=== PATIENT | female | born 1995 | race African-American/Black ===

== ENCOUNTER → 2019-04-21 | Outpatient (CLI) | payer BC ==
[~2019-04-21] MED LIST: BACTRIM DS TAB1 EACH PO; IBUPROFEN 600600 M1 PO; NOHOMEMEDICATIONS; NORCO 5-325 TA1 EACH PO; PYRIDIUM200 MG PO
== END ==
LOC: ULTRA 08:08
DX: R10.13 Epigastric pain (principal)

== ENCOUNTER → 2019-07-04 | Outpatient (CLI) | payer BC | LOC: RAD 08:43 | DX: M25.512 Pain in left shoulder (principal) ==

== ENCOUNTER → 2019-09-19 | Outpatient (CLI) | payer BC ==
[~2019-09-19] VITALS: Ht 157.5 cm; Wt 68.0 kg
[~2019-09-19] MED LIST changes: +TIZANIDINE HCL 22 M1 PO
[2019-09-19 14:03] VITALS: BP 151/97
--- NOTE | 2019-09-19 14:18 | NUR ---
Pain Clinic Assessment: 1. History of Osteoarthritis: Not Applicable History of Rheumatoid Arthritis: Not Applicable 2. Height: 5 ft. 2 in. 157.5 cm. Weight: 150.0 lb. oz. 68.040 kg. Patient's BMI: 27.4 3. Vital Signs: BP: 151/97 Pulse: 78 Resp: 16 Temp: 02 Sat: 97 ECG Mon: 4. Pain Intensity: 6 5. Fall Risk: Dizziness: N Needs help standing or walking: N Fallen in the last 3 months: N Fall risk comments: 6. Patient on Blood Thinner: None 7. History of Hypertension: N 8. Opioid Therapy greater than 6 weeks: N Opiate Contract Signed: 9. Risk Assessment Tool Provided: LOW-O 10. Functional Assessment Tool: 39/ 11. Recreational Drug Use: Never Drug Type: Tobacco Use: Never Smoker Tobacco Type: Amount or Packs/day: How Many Years: Alcohol Use: Yes Frequency: Weekly Quant: 3
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
== END ==
LOC: PAIN 06:55
DX: M51.36 Other intervertebral disc degeneration, lumbar region (principal); M51.26 Other intervertebral disc displacement, lumbar region; M47.816 Spondylosis without myelopathy or radiculopathy, lumbar region; Z79.899 Other long term (current) drug therapy

== ENCOUNTER 2021-04-08 13:34 | Emergency (ER) | payer BC ==
[~2021-04-08] VITALS: Ht 162.6 cm; Wt 70.3 kg
[2021-04-08 13:53] LABS: URINE BILIRUBIN NEGATIVE (Negative); URINE BLOOD TRACE (Negative); URINE CLARITY CLEAR; URINE COLOR YELLOW; URINE GLUCOSE-RANDOM* NEGATIVE (Negative); URINE KETONES NEGATIVE (Negative); URINE LEUKOCYTES-REFLEX NEGATIVE (Negative); URINE NITRITE-REFLEX NEGATIVE (Negative); URINE PROTEIN (DIPSTICK) NEGATIVE (Negative); URINE UROBILINOGEN 0.2 E.U./dl (0.2-1.0)
[2021-04-08 15:04] LABS: ABSOLUTE NEUTROPHILS 11.7 thou/uL (1.4-8.2); BASOPHILS 0.2 % (0.0-2.0); EOSINOPHILS 0.2 % (0.0-3.0); HEMATOCRIT 38.6 % (37.0-47.0); HEMOGLOBIN 13.1 gm/dL (12.0-15.0); LYMPHOCYTES 5.9 % (24.0-44.0); MCHC 33.9 g/dL (28.0-37.0); MCV 91.4 fL (80.0-100.0); PLATELET COUNT 247 thou/uL (150-400); POLYS 85.7 % (36.0-66.0); RBC 4.23 mil/uL (4.20-5.00); RDW 13.5 % (10.5-14.5); WBC 13.7 thou/uL (4.0-11.0)
[2021-04-08 15:17] LABS: ALBUMIN 3.6 g/dL (3.4-5.0); CALCIUM 9.2 mg/dL (8.5-10.1); CREATININE 0.7 mg/dL (0.6-1.0); TOTAL BILIRUBIN 0.3 mg/dL (0.2-1.0); TOTAL PROTEIN 8.2 g/dL (6.4-8.2)
[2021-04-08] MEDS ORDERED: IBU600 MG PO (15:50)
[2021-04-08] MEDS ORDERED: NORCO5 PO (15:50)
[2021-04-08 15:59] VITALS: BP 132/75
== END 2021-04-08 16:04 | disposition home or self-care (01) ==
LOC: ER 13:34
PROVIDERS: Emergency Medicine
DX: N83.202 Unspecified ovarian cyst, left side (principal); N83.201 Unspecified ovarian cyst, right side; E87.6 Hypokalemia; R10.13 Epigastric pain